=== PATIENT | female | born 1995 | race Two or more races ===

== ENCOUNTER 2025-08-09 15:00 | Emergency (ER) | payer BC, OTHER ==
[~2025-08-09] VITALS: Ht 170.2 cm; Wt 70.2 kg
--- NOTE | 2025-08-09 17:33 | ED.PDOC ---
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 Patient is 12 weeks gestation with last menstrual cycle recorded on 05/27/25. Patient reports bright red blood with no blood clots noted. She denies any trauma, nausea, vomiting, diarrhea or fevers. No medical history reported. Vital signs were stable. Patient states she continues to have an active bleed. Chief Complaint: Time Seen by MD: 17:20 Reviewed Notes: Nurses Notes, Medications, Allergies Allergies: Coded Allergies: NO KNOWN ALLERGIES (Unverified , 08/09/25) Information Source: Patient Mode of Arrival: Ambulatory Timing: Days Severity: Moderate Bleeding Quality: Bright Red Onset Of Mass/Bleeding: Spontaneous Sexual Activity: Last Consensual [place]: Unknown Control: None History of: Current Associated Signs and Symptoms: Vaginal Bleeding, Abdominal Pain Past Medical History PAST MEDICAL HISTORY: Denies Past Medical History (Other): Patient states 12 weeks Surgical History: Denies all surgeries [employer]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 [employer] AS[employer]BLER History Family History Family History: Reviewed,noncontributory to illness Social History Smoker: Non-Smoker Alcohol: Denies ETOH Use Drugs: Denies Drug Use Lives In: Home Constitutional: denies: chills, diaphoresis, fatigue, fever, malaise, sweats, weakness, others EENTM: denies: blurred vision, double vision, ear bleeding, ear discharge, ear drainage, ear pain, ear ringing, eye pain, eye redness, hearing loss, mouth pain, mouth swelling, nasal discharge, nose bleeding, nose congestion, nose pain, photophobia, tearing, throat pain, throat swelling, voice changes, others Respiratory: denies: cough, hemoptysis, orthopnea, SOB at rest, shortness of breath, SOB with excertion, stridor, wheezing, others Cardiovascular: denies: chest pain, dizzy spells, diaphoresis, Dyspnea on exertion, edema, irregular heart beat, left arm pain, lightheadedness, palpitations, PND, syncope, others Gastrointestinal: reports: abdominal pain; denies: abdomen distended, blood streaked bowels, constipated, diarrhea, dysphagia, difficulty swallowing, hematemesis, melena, nausea, poor appetite, poor fluid intake, rectal bleeding, rectal pain, vomiting, others Genitourinary: reports: abnormal vagina bleeding; denies: burning, dyspareunia, dysuria, flank pain, frequency, hematuria, incontinence, pain, , vagina discharge, urgency, others Neurological: denies: dizziness, fainting, headache, left sided numbness, left sided weakness, numbness, paresthesia, pre-existing deficit, right sided numbness, right sided weakness, seizure, speech problems, tingling, tremors, weakness, others Musculoskeletal: denies: back pain, gout, joint pain, joint swelling, muscle pain, muscle stiffness, neck pain, others Integumetry: denies: bruises, change in color, change in hair/nails, dryness, laceration, lesions, lumps, rash, wounds, others Allergic/Immunocompromised: denies: Difficulty Healing, Frequent Infections, Hives, Itching, others Hematologic/Lymphatic: denies: anemia, blood clots, easy bleeding, easy bruising, swollen glands, others Endocrine: denies: excessive hunger, excessive sweating, excessive thirst, excessive urination, flushing, intolerance to cold, intolerance to heat, unexplained weight gain, unexplained weight loss, others Psychiatric: denies: anxiety, bipolar disorder, depression, hopeless, panic disorder, schizophrenia, sleepless, suicidal, others All Other Systems: Reviewed and Negative Physical Exam General Appearance: Moderate Distress (Patient is a [id number] distress due to anxiety related to her vaginal bleeding event as much as pain. Patient declined the need for any pain medication while at the facility.), Normal HEENT: Normal ENT Inspection, Pharynx Normal, TMs Normal Neck: Full Range of Motion, Non-Tender, Normal, Normal Inspection Respiratory: Chest Non-Tender, Lungs Clear, No Accessory Muscle Use, No Respiratory Distress, Normal Breath Sounds Cardiovascular: No Edema, No JVD, No Murmur, No Gallop, Normal Peripheral Pulses, Regular Rate/Rhythm Breast Exam: Deferred Gastrointestinal: Other (Diffuse nonspecific bilateral lower abdominal/pelvic pain. No signs of trauma.) Genitalia: Deferred Pelvic: Deferred Rectal: Deferred Extremities: No calf tenderness, Normal capillary refill, Normal inspection, Normal range of motion, Non-tender, No pedal edema Neurologic: Alert Cerebellar Function: NOT DONE Reflexes: NOT DONE Skin: Dry, Normal Color, Warm Lymphatic: No Adenopathy Was a procedure done? Was a procedure done?: No Differential Diagnosis ([employer]ER) Vaginal Bleeding: - Complete, - Incomplete, - Inevitable, - Missed, - Threatened, Blood Loss Anemia, Ectopic , Other (First trimester vaginal bleed) X-Ray, Labs, Meds, VS Vital Signs Date Time Temp Pulse Resp B/P (MAP) Pulse Ox O2 Delivery O2 Flow Rate FiO2 08/09/25 15:02 98.0 79 18 113/73 99 98.0 Lab Test 08/09/25 19:00 08/09/25 16:25 08/09/25 15:37 Range/Units Urine Color Dark-red Yellow Urine Clarity Ex.turbid Clear Urine pH 6.0 5.0-9.0 Urine Specific [place] 1.030 1.001-1.035 Urine Protein 2+ H Negative Urine Ketones Negative Negative Urine Blood 3+ H Negative /uL Urine Nitrite Negative Negative Urine Bilirubin 1+ H Negative Urine Urobilinogen Normal Negative mg/dL Urine Leukocyte Esterase Negative Negative /uL Urine RBC None seen 0 - 4 /hpf Urine Microscopic WBC 5 0-5 /HPF Urine Squamous Epithelial Cells None seen <5 /hpf Urine Bacteria None seen None Seen /hpf Urine Glucose Normal Normal mg/dL Beta HCG, Quantitative 39377.6 H 1.5-4.2 mIU/mL Urine Test Positive Negative X-Ray, Labs, Meds, VS Comment All studies performed the ED were evaluated by me personally. [place] [address], but ultrasound was unremarkable for any intrauterine . Patient appears to have had a miscarriage. Advised patient to follow up with her plastic printer for re-evaluation in the next few days to rule out any retained products of conception. Pain medication as needed. Time of 1ST Reevaluation: 19:49 Reevaluation 1ST: Unchanged Consultation: PCP, cupola patcher Patient Education/Counseling: Diagnosis, Treatment, Prognosis Family Education/Counseling: Diagnosis, Treatment, No Family Present Departure 1 Departure Time of Disposition: 19:50 Impression: Primary Impression: Miscarriage at 8 to 28 weeks gestation Disposition: HOME / SELF CARE / HOMELESS Condition: Stable Additional Instructions: Advised patient follow up with plastic printer in the next few days for re-evaluation and confirmation of resolution of the any retained products of conception. Tylenol and or Motrin as needed for pain. Good hydration and healthy nutrition for the next few weeks. Discharged With: Self, Friend Critical Care Note Critical Care Time?: No Stability Stability form required: No I personally scribed for ANNETTE ORNELAS PAC ([email or web address]) on 08/09/25 at 17:33. Electr onically submitted by Candace Meeks ([facility]). ANNETTE ORNELAS PAC Aug 09, 2025 17:33
--- NOTE | 2025-08-09 17:44 | DVH ---
OB ULTRASOUND <14 WEEKS: HISTORY: Vaginal bleed TECHNIQUE: Multiple real-time grayscale sonographic images of the pelvis with duplex Doppler color f low, spectral and M-mode analysis. TRANSDUCERS: C1-6 COMPARISON: US OB TRANS VAGINAL US on DOS: 08/09/25 FINDINGS: The uterus measures 9.5 x 5.2 x 7 cm Right ovary measures 24. cm with normal Doppler color flow. Simple cyst measures up to 1.1 cm Left ovary measures 3.4 cm with normal Doppler color flow. No intrauterine seen at this time. IMPRESSION: 1. No intrauterine seen at this time. 2. Recommend continued correlation with beta hCG and follow-up sonography as clinically indicated. No acute abnormality detected.
[2025-08-09 19:25] LABS: Urine Protein, UAD 2+ (Negative)
[2025-08-09 19:50] VITALS: BP 120/68; PULSE 74; RESP 20; TEMP 98.4; O2SAT 100
== END 2025-08-09 19:54 | disposition home or self-care (01) ==
LOC: ER 15:03
DX: O03.9 Complete or unspecified spontaneous abortion without complication (principal); Z3A.01 Less than 8 weeks gestation of pregnancy
CPT/HCPCS: 36415; 76801; 76817; 81001; 81025; 84702